=== PATIENT | female | born 1950 | race Caucasian/White ===

== ENCOUNTER 2022-01-31 09:23 | Day surgery (SDC) | payer MEDICARE ==
[2022-01-30 08:32] VITALS: BMI 43.2
[~2022-01-31 09:23] MED LIST: SODIUM CHLORIDE 0.9% 1,000 ML IV SCH
[2022-01-31] MEDS ORDERED: SODIUM CHLORIDE 0.9% 1,000 ML IV ONE (09:52)
[2022-01-31 09:53] LABS: Basophils # (A) 0.1 k/uL (0-0.2); Basophils % (A) 2 %; Eosinophils # (A) 0.5 k/uL (0-0.7); Eosinophils % (A) 8 %; HCT 36.7 % (34.0-46.0); Lymphocytes # (A) 2.1 k/uL (1.0-4.8); Lymphocytes % (A) 31 %; MCH 31.9 pg (25.0-35.0); MCHC 32.8 g/dL (31.0-37.0); Monocytes # (A) 0.4 k/uL (0-1.0); Monocytes % (A) 6 %; Neutrophils # (A) 3.6 k/uL (1.3-7.7); Neutrophils % (A) 52 %; Platelet Count 234 k/uL (150-450); RBC 3.78 m/uL (3.80-5.40); RDW 12.7 % (11.5-15.5); WBC 6.9 k/uL (3.8-10.6)
[2022-01-31 10:02] LABS: Calcium 9.8 mg/dL (8.4-10.2); Potassium 4.2 mmol/L (3.5-5.1)
[2022-01-31] MEDS ORDERED: fentaNYL (PF) 50 MCG/ML 2 ML AMP ONE (10:53)
[2022-01-31] MEDS ORDERED: MIDAZOLAM 2 MG/2 ML VIAL ONE (10:53)
[2022-01-31] MEDS ORDERED: LIDOCAINE 2% INJ 20 MG/ML (2 ML VIAL) ONE (10:53)
[2022-01-31] MEDS ORDERED: HEPARIN SODIUM,PORCINE 10,000 UNIT/ML 1 ML VIAL ONE (10:53)
[2022-01-31] MEDS ORDERED: PROPOFOL 10 MG/ML 20 ML VIAL IV ONE (10:53)
[2022-01-31] MEDS ORDERED: SUCCINYLCHOLINE CHLORIDE 100 MG/5 ML SYR IV ONE (10:53)
[2022-01-31] MEDS ORDERED: HEPARIN SOD,PORK IN 0.45% NACL 25,000 UNIT in 0.45% NACL 1 250ML.BAG IV ONE (11:24)
[2022-01-31] MEDS ORDERED: LIDOCAINE 1% INJ 10MG/ML (30 ML VIAL-PF) SQ ONE (11:25)
[2022-01-31] MEDS ORDERED: IOPAMIDOL-370 100ML BTL INJ ONE (13:20)
--- NOTE | 2022-01-31 14:34 | P.HPCAR ---
History of Present Illness This is Dr. Jo dictating an H/P on this patient The patient was interviewed and examined IMPRESSION / ASSESSMENT: Persistent atrial fibrillation Type 2 diabetes Hypertension Morbid obesity Obstructive sleep apnea PLAN: Pulmonary vein isolation for management of atrial fibrillation HPI Patient continues to have symptoms of fatigue and shortness of breath and exertion Occasional lower extremity edema ROS: No fever chills or rigors, no cough, phlegm or expectoration, no nausea, vomiting or diarrhea, no hematuria, dysuria, no musculoskeletal complaints, no strokes or seizures, no skin lesions. EXAMINATION: Blood pressure 116% 1 mmHg pulse rate in the 70s and 80s Afebrile Breath sounds are reduced bilaterally Morbid obesity REVIEW OF LABS, ECG & MEDICAL DATA Medication list was reviewed and includes amlodipine, ELIQUIS, diabetes medications losartan and metformin Physical Exam Vitals: Vital Signs Temp Pulse Pulse Resp BP Pulse Ox 01/31/22 14:26 78 16 129/79 98 01/31/22 14:11 74 16 120/72 96 01/31/22 13:56 97.1 F L 71 16 116/71 92 L 01/31/22 09:48 98.6 F 78 18 143/75 98 Intake and Output 01/30/22 01/31/22 01/31/22 22:59 06:59 14:59 Intake Total 846 Balance 846 Intake: IV 846 Other: Weight 125 kg Past Medical History Past Medical History: Diabetes Mellitus, Sleep Apnea/CPAP/BIPAP, Thyroid Diso rder Additional Past Medical History / Comment(s): see Dr Jo's H&P, co nstipation, History of Any Multi-Drug Resistant Organisms: None Reported Past Surgical History: Cholecystectomy Additional Past Surgical History / Comment(s): cardioversion, Past Anesthesia/Blood Transfusion Reactions: No Reported Reaction Smoking Status: Former smoker - Past Family History Mother Family Medical History: Cancer Additional Family Medical History / Comment(s): skin cancer Physical Examination Vital Signs Temp Pulse Pulse Resp BP Pulse Ox 01/31/22 14:26 78 16 129/79 98 01/31/22 14:11 74 16 120/72 96 01/31/22 13:56 97.1 F L 71 16 116/71 92 L 01/31/22 09:48 98.6 F 78 18 143/75 98 Intake and Output 01/30/22 01/31/22 01/31/22 22:59 06:59 14:59 Intake Total 846 Balance 846 Intake: IV 846 Other: Weight 125 kg Results 01/31/22 09:35 01/31/22 09:35 CBC 01/31/22 Range/Units 09:35 WBC 6.9 (3.8-10.6) k/uL RBC 3.78 L (3.80-5.40) m/uL Hgb 12.0 (11.4-16.0) gm/dL Hct 36.7 (34.0-46.0) % Plt Count 234 (150-450) k/uL Comprehensive Metabolic Panel 01/31/22 Range/Units 09:35 Sodium 139 (137-145) mmol/L Potassium 4.2 (3.5-5.1) mmol/L Chloride 107 (98-107) mmol/L Carbon Dioxide 24 (22-30) mmol/L BUN 20 H (7-17) mg/dL Creatinine 0.96 (0.52-1.04) mg/dL Glucose 207 H (74-99) mg/dL Calcium 9.8 (8.4-10.2) mg/dL Current Medications Generic Name Dose Route Start Last Admin Trade Name Freq PRN Reason Stop Dose Admin Sodium Chloride 1,000 mls @ 20 mls/hr 01/31/22 05:42 Saline 0.9% IV 03/02/22 05:43 .Q24H JUVENCIO Intake and Output 01/30/22 01/31/22 01/31/22 22:59 06:59 14:59 Intake Total 846 Balance 846 Intake: IV 846 Other: Weight 125 kg Patient Weight 02/01/22 06:59 Weight 125 kg 01/31/22 09:35 01/31/22 09:35
[2022-01-31] MEDS ORDERED: ACETAMINOPHEN IV (For NPO) 1,000 MG in EMPTY BAG 1 BAG IVPB ONE (14:40)
[2022-01-31] MEDS ORDERED: ACETAMINOPHEN TAB 325 MG TAB PO PRN (14:40)
--- NOTE | 2022-01-31 14:40 | P.EPPROC ---
- EP Procedure Note Electrophysiology Procedure Note: PROCEDURE A. fib ablation/PVI DIAGNOSIS Persistent Atrial fibrillation, symptomatic, refractory to therapy RESULT No left atrial appendage mass seen on intracardiac echo Left atrium is only mildly enlarged Successful A. fib ablation/pulmonary vein isolation of all veins using cryo-ablation Complete entrance block in all 4 veins confirmed No evidence for phrenic nerve injury Esophageal deflection YES , right-sided esophagus Electrical cardioversion with a synchronized shock across the chest YES, 400J PROCEDURE DETAILS Patient was brought to the EP lab in a fasting state after obtaining written informed consent. Procedure performed under general anesthesia Esophagus was intubated. Esophageal temperature monitoring with circa catheter. Esophageal deflection with an endoscope to avoid hypothermia of the esophagus. After initial muscle relaxant use, muscle relaxants were not given thereafter in order to assess phrenic nerve during procedure. Patient prepped and draped as per protocol Cryo ablation-set up with standard preparation of the cryoablation tools done. Femoral Venous access obtained on the right and left groins and sheaths placed Diagnostic catheters for the high right atrium, phrenic nerve stimulation and pacing, His bundle, coronary sinus placed Intracardiac echo catheter placed. Long sheath placed in the right atrium Left and right transseptal catheterization performed under intracardiac echo guidance. Intravenous heparin with aCT above 300 Later, catheter positioning and balloon positioning in the left atrium and pulmonary veins, under intracardiac echo guidance Diagnostic EP study with coronary sinus pacing and recording Baseline measurements: Sinus cycle length 757 ms, CT interval 223, QRS 76 and QT to 65 ms Transseptal catheterization performed RA pressure 23/18/21 LA pressure 28/12/20 Transseptal catheterization performed with standard sheath. The cryoablation sheath was then placed with an over the wire exchange without any acute complications. The cryoablation balloon was placed in the office of each pulmonary vein and all 4 pulmonary veins were isolated. IV dye was injected to confirm occlusion. Goal: achieve complete occlusion of the pulmonary vein, achieve -30 degrees C at 30 seconds and achieve -40 degrees C at 60 seconds and a time to effect of less than 60 seconds. If not, the balloon was repositioned to obtain this result After completion of Cryoblation with durations from 180-240 seconds, entrance block was confirmed with the Attain circular catheter in a roving fashion around the antrum of the pulmonary veins Phrenic nerve pacing was performed from the SVC, right innominate vein area and diaphragm voltage was monitored. Diaphragmatic contractions were also monitored manually for strength of contraction. At the end of the procedure the Achieve catheter was once again used to check for entrance block Phrenic nerve stimulation was performed to confirm diaphragmatic stimulation the end of the procedure Phrenic were nerve could be stimulation from the RSPV with high output Cine fluoroscopy was performed at the very end of the procedure to confirm movement of both diaphragms with inspiration and expiration At the end of the procedure the patient was extubated Venous sheaths were removed and hemostasis assured with a closure device PROCEDURES PERFORMED Diagnostic EP study CS pacing and recording Left and right transseptal catheterization Catheter the mapping of the tachycardia Intracardiac echocardiography Pulmonary vein isolation with transseptal and comprehensive EPS, [address]137 Electrical cardioversion with a synchronized shock across the chest [id number]
[2022-01-31] MEDS: BENZOCAINE/MENTHOL LOZENG 1 EACH LOZENGE MUCOUS MEM PRN ×2 (16:50→20:39)
[2022-01-31] MEDS: IBUPROFEN 400 MG TAB PO SCH ×2 (16:51→20:40)
[2022-01-31 17:24] LABS: Glucose,Whole Blood 228 mg/dL (70-110)
[2022-01-31] MEDS: APIXABAN 5 MG TAB PO SCH (20:40)
[2022-01-31 21:26] LABS: Glucose,Whole Blood 261 mg/dL (70-110)
[2022-02-01] MEDS: BENZOCAINE/MENTHOL LOZENG 1 EACH LOZENGE MUCOUS MEM PRN ×2 (01:11→05:48)
[2022-02-01] MEDS ORDERED: LEVOTHYROXINE 88 MCG TAB PO SCH (06:30)
[2022-02-01 07:36] LABS: Glucose,Whole Blood 183 mg/dL (70-110)
[2022-02-01 08:26] VITALS: BP 120/68; PULSE 82; RESP 18; TEMP 97.8
--- NOTE | 2022-02-01 09:27 | P.EPPROC ---
- EP Procedure Note Electrophysiology Procedure Note: Patient complains of a sore throat. Motrin did not help her An ice pack over her neck helps Denies any chest pain dizziness lightheadedness Blood pressure 120/60. His mercury pulse rate in the 80s Afebrile Breath sounds are clear no rhonchi no crackles Heart sounds are normal no rub Groins of healed well mild soreness but no hematoma Impression Persistent atrial fibrillation Mild left atrial enlargement Morbid obesity Status post pulmonary vein isolation followed by electrical cardioversion with a 400 J shock Plan Discharge home today Follow Dr. Jo in about 7-10 days Continue anticoagulation Amiodarone has been discontinued completely line continue other cardiac medications
[2022-02-01] MEDS: IBUPROFEN 400 MG TAB PO SCH (09:31)
[2022-02-01] MEDS: APIXABAN 5 MG TAB PO SCH (09:31)
--- NOTE | 2022-02-01 09:38 | P.DS ---
Providers Attending physician: Lawrence Jo Primary care physician: [facility] Course: This is 71-year-old female who underwent pulmonary vein isolation followed by electrical cardioversion on 01/31/2022. Patient examined at the bedside. She is doing well postprocedure. She denies any chest pain or pressure. Denies shortness of breath. She complains of a sore throat but states that an icepack has been helping her symptoms. Vital signs are stable. The patient was deemed stable for discharge home today per Dr. Jo. Please see EMR for further hospital course details Discharge diagnosis Persistent atrial fibrillation Mild left atrial enlargement Morbid obesity Status post pulmonary vein isolation followed by electrical cardioversion Nurse practitioner note has been reviewed by physician. Signing provider agrees with the documented findings, assessment, and plan of care. Plan - Discharge Summary Discharge Rx Participant: No New Discharge Prescriptions: Continue Apixaban [Eliquis] 5 mg PO BID metFORMIN HCL [Glucophage] 1,000 mg PO BID Losartan Potassium [Cozaar] 100 mg PO 1000 amLODIPine [Norvasc] 10 mg PO 1000 Levothyroxine Sodium [Synthroid] 88 mcg PO DAILY sitaGLIPtin [Januvia] 100 mg PO 1000 glipiZIDE [Glucotrol] 10 mg PO 1000 Discharge Medication List Apixaban [Eliquis] 5 mg PO BID 01/30/22 [History] Levothyroxine Sodium [Synthroid] 88 mcg PO DAILY 01/30/22 [History] Losartan Potassium [Cozaar] 100 mg PO 1000 01/30/22 [History] amLODIPine [Norvasc] 10 mg PO 1000 01/30/22 [History] glipiZIDE [Glucotrol] 10 mg PO 1000 01/30/22 [History] metFORMIN HCL [Glucophage] 1,000 mg PO BID 01/30/22 [History] sitaGLIPtin [Januvia] 100 mg PO 1000 01/30/22 [History] Follow up Appointment(s)/Referral(s): Lawrence Jo MD [STAFF PHYSICIAN] - 02/14/22 9:30 am (Appointment at the main office) Activity/Diet/Wound Care/Special Instructions: Post EP study - Ablation instructions 1. Keep access sites dry for 2 days. 2. No heavy lifting or straining for 2 days. 3. Avoid bending the hips repeatedly for 2 days. 4. You may go up and down stairs slowly Call if the following is noted 1. Bleeding, increasing swelling or pain at the access sites. 2. Increasing chest discomfort, especially upon taking a deep breath. 3. Increasing shortness of breath, at rest or with exertion. 4. Undue cough / phlegm 5. Difficulty or pain while swallowing. 6. Pain or change in color in the extremities. 7. Fever, chills, rigors. 8. Increasing headache or neurologic symptoms. 9. Dizziness, fainting, palpitations No change in medications Continue anticoagulation Discharge Disposition: HOME SELF-CARE
[2022-02-01] MEDS ORDERED: glipiZIDE 10 MG TAB PO SCH (10:00)
[2022-02-01] MEDS ORDERED: LINAGLIPTIN 5 MG TABLET PO SCH (10:00)
[2022-02-01] MEDS ORDERED: amLODIPine 10 MG TAB PO SCH (10:00)
[2022-02-01] MEDS ORDERED: LOSARTAN 50 MG TAB PO SCH (10:00)
[2022-02-02] MEDS ORDERED: metFORMIN 500 MG TAB PO SCH (21:00)
== END 2022-02-01 11:48 | disposition home or self-care (01) ==
LOC: CATHEP 09:23 → 6NMEDSUR 13:30 → CATHEP 02-01 11:48
PROVIDERS: ATTEND Internal Medicine Clinical Cardiac Electrophysiology
DX: I48.91 Unspecified atrial fibrillation (principal); E11.9 Type 2 diabetes mellitus without complications; I10 Essential (primary) hypertension; E66.01 Morbid (severe) obesity due to excess calories; Z68.42 Body mass index [BMI] 45.0-49.9, adult; G47.33 Obstructive sleep apnea (adult) (pediatric); E03.9 Hypothyroidism, unspecified; Z20.822 Contact with and (suspected) exposure to COVID-19; E78.5 Hyperlipidemia, unspecified; Z82.49 Family history of ischemic heart disease and other diseases of the circulatory system; Z72.0 Tobacco use; Z91.09 Other allergy status, other than to drugs and biological substances; Z79.01 Long term (current) use of anticoagulants; Z79.84 Long term (current) use of oral hypoglycemic drugs; Z79.890 Hormone replacement therapy; Z79.899 Other long term (current) drug therapy
CPT/HCPCS: 93656; 80048; 85025; 87635; C1894 ×2; C1769 ×5; C1760; C1730 ×2; C1759; C1893; C1733; C1766; J2250; J1644 ×2; J2001 ×2; J3010; J0330; J2704; Q9967

== ENCOUNTER 2022-04-02 09:29 | Day surgery (SDC) | payer MEDICARE ==
[2022-04-01 12:08] VITALS: BMI 42.7
[~2022-04-02 09:29] MED LIST changes: +LACTATED RINGERS 1,000 ML IV SCH
[2022-04-02] MEDS ORDERED: SODIUM CHLORIDE 0.9% 500 ML 500 ML IV ONE (09:31)
[2022-04-02 09:50] VITALS: RESP 16; TEMP 98.1
[2022-04-02 09:53] LABS: Glucose,Whole Blood 167 mg/dL (70-110)
[2022-04-02] MEDS ORDERED: PROPOFOL 10 MG/ML 20 ML VIAL IV ONE (10:54)
--- NOTE | 2022-04-02 11:13 | P.HPCAR ---
History of Present Illness This is Dr. Jo dictating an H/P on this patient The patient was interviewed and examined IMPRESSION / ASSESSMENT: Persistent atrial fibrillation, failed oral Multaq loading Preserved LV systolic function Status post PVI Type 2 diabetes Hypothyroidism Hypertension PLAN: Electrical cardioversion on Multaq 400 mg twice daily HPI Patient continues to complain of shortness of breath and remains in atrial fibrillation Despite a controlled ventricular response she is still short of breath She is already undergone PVI for A. fib management Subsequently she went back into atrial fibrillation He stopped amiodarone 2 months back I treated her with oral Multaq but she did not chemically cardiovert on hormone She is having gotten one electrical cardioversion today ROS: No fever chills or rigors, no cough, phlegm or expectoration, no nausea, vomiting or diarrhea, no hematuria, dysuria, no musculoskeletal complaints, no strokes or seizures, no skin lesions. EXAMINATION: Afebrile 98.1F blood pressure 140/72 mmHg pulse ox 97% Breath sounds are reduced bilaterally but there are no rhonchi no crackles Heart sounds are irregular no murmurs No lower extremity edema No orthopnea REVIEW OF LABS, ECG & MEDICAL DATA Patient is on Multaq Physical Exam Vitals: Vital Signs Temp Pulse Resp BP Pulse Ox 04/02/22 09:46 98.1 F 65 16 140/72 97 Intake and Output 04/01/22 04/02/22 04/02/22 22:59 06:59 14:59 Intake Total 0 Balance 0 Intake: IV 0 Other: Weight 124 kg Past Medical History Past Medical History: Atrial Fibrillation, Diabetes Mellitus, Sleep Apnea/CPAP/BIPAP, Thyroid Disorder Additional Past Medical History / Comment(s): see Dr Jo's H&P History of Any Multi-Drug Resistant Organisms: None Reported Past Surgical History: Cardiac Ablation, Cholecystectomy, EPS Additional Past Surgical History / Comment(s): cardioversion Past Anesthesia/Blood Transfusion Reactions: No Reported Reaction Past Psychological History: No Psychological Hx Reported Smoking Status: Former smoker Past Alcohol Use History: Occasional Additional Past Alcohol Use History / Comment(s): quit smoking about 40 yrs ago in college Past Drug Use History: None Reported - Past Family History Mother Family Medical History: Cancer Additional Family Medical History / Comment(s): skin cancer Physical Examination Vital Signs Temp Pulse Resp BP Pulse Ox 04/02/22 09:46 98.1 F 65 16 140/72 97 Intake and Output 04/01/22 04/02/22 04/02/22 22:59 06:59 14:59 Intake Total 0 Balance 0 Intake: IV 0 Other: Weight 124 kg Results Intake and Output 04/01/22 04/02/22 04/02/22 22:59 06:59 14:59 Intake Total 0 Balance 0 Intake: IV 0 Other: Weight 124 kg Patient Weight 04/03/22 06:59 Weight 124 kg
--- NOTE | 2022-04-02 11:19 | P.EPPROC ---
- EP Procedure Note Electrophysiology Procedure Note: Diagnosis Recurrent persistent atrial fibrillation, symptomatic despite PVI Failed to cardiovert chemically on Multaq Brought in from electrical cardioversion Procedure 200 J biphasic shock in the AP configuration failed to cardiovert the patient Successful electrical cardioversion with a combined 400 J shock in the EP and anterior apical configuration converted to sinus rhythm Sinus in the 70s-80s on Multaq 400 twice a day Plan Twelve-lead EKG Continue Multaq Lipid panel today Continue antihypertensive therapy Follow-up Holter monitor in 4 weeks
[2022-04-02 14:58] VITALS: BP 124/65; PULSE 78
== END 2022-04-02 12:45 | disposition home or self-care (01) ==
LOC: CATHEP 09:29
PROVIDERS: ATTEND Internal Medicine Clinical Cardiac Electrophysiology
DX: I48.19 Other persistent atrial fibrillation (principal); E11.9 Type 2 diabetes mellitus without complications; E03.9 Hypothyroidism, unspecified; I10 Essential (primary) hypertension; Z20.822 Contact with and (suspected) exposure to COVID-19; E78.5 Hyperlipidemia, unspecified; Z82.49 Family history of ischemic heart disease and other diseases of the circulatory system; Z79.84 Long term (current) use of oral hypoglycemic drugs; Z79.01 Long term (current) use of anticoagulants; Z79.899 Other long term (current) drug therapy; Z88.8 Allergy status to other drugs, medicaments and biological substances; G47.33 Obstructive sleep apnea (adult) (pediatric); Z87.891 Personal history of nicotine dependence; Z79.890 Hormone replacement therapy
CPT/HCPCS: 92960; 87635; J2704